=== PATIENT | male | born 1940 | race Caucasian/White ===

== ENCOUNTER 2017-01-28 17:53 | Emergency (ER) | payer MEDICARE, MEDICAID ==
[~2017-01-28] VITALS: Ht 177.8 cm; Wt 77.9 kg
[~2017-01-28 17:53] MED LIST: ACET-2161 PO; ACET-62 PO; CETI-115 PO; CLON1TAB PO; CLOP75TA19 PO; DESM0.1T2 PO; ESCI20TA22 PO; FLUT9.9S NAS; FURO-153 PO; GABA-192 PO; IPRA3AMP AEROSOL; LEVO100T12 PO; LEVO88TA7 PO; LITH450T2 PO; NAPR220C11 PO; POTA20TA87 PO; PROP40TA7 PO; SIMV10TA2 PO; TAMS0.4C20 PO; TOPI50TA PO; TRAZ-173 PO; [UNRECOGNIZED DRUG - CODE] PO
[2017-01-28 17:54] VITALS: Ht 177.8 cm; Wt 77.9 kg
--- OUTSIDE RECORDS SUMMARY | 2017-01-28 17:56 | XMS REPORT | Continuity of Care Document ---
Author Author Dwain Blanca DPM [facility] Address [address] [place] [address] Phone Payers Payer name Insurance type Covered alliance party ID Authorization(s) Unknown Problems Condition Effective Dates (start - stop) Clinical Status HYPERTENSION NOS - Family History Family Member Diagnosis Age At Onset Status Unknown Social History Social History Element Description Quantity Unknown Allergies, Adverse Reactions, Alerts Substance Reaction Severity Status Unknown Medications Medication Instructions Dosage Effective Dates (start - stop) Status Unknown Immunizations Vaccine Date Status Comments Unknown Results Test Name Date and Time Measure Units Reference Range Abnormal Flag Comments Unknown Vital Signs Date / Time: Height Weight Pulse Rate Blood Pressure Temperature Unknown Procedures Procedure Date Unknown Encounters Encounter Location Date Patient Visit C New Pod Patient Visit Conversion Advance Directives Directive Effective Date Unknown
--- OUTSIDE RECORDS SUMMARY | 2017-01-28 17:56 | XMS REPORT ---
Author Author [place] Unknown Address Unknown Phone Unavailable Allergies, Adverse Reactions, Alerts * No Latex Allergy. * No IV Contrast Allergy. * No Known Drug Allergies. * No Known Food Allergies. * No Known Allergies. Problems * Cerebrovascular Accident* Status:Active. * Fall Risk* Status:Active. Procedures No Procedures Documented. Medication It is the responsibility of the patient or patient independent sales representative to confirm the list of medications with either the patient's personal care provider or the patient's follow-up care provider to ensure the patient has an appropriate list of medications to take at home. Discharge medications* benztropine 0.5 mg Tablet, Ordered By: Jose Dobbs Directions: 1 tablet oral twice a day * cetirizine (ZyrTEC) 10 mg Tablet, Ordered By: Jose Dobbs Directions: 1 tablet oral daily at bedtime * clopidogrel (Plavix) 75 mg Tablet, Ordered By: Jose Dobbs Directions: 1 tablet oral daily * escitalopram (LexAPRO) 20 mg Tablet, Ordered By: Jose Dobbs Directions: 1 tablet oral daily * gabapentin (NEUROntin) 600 mg Tablet, Ordered By: Jose Dobbs Directions: 1 tablet oral twice a day * levothyroxine 200 mcg Tablet, Ordered By: Jose Dobbs Directions: 1 tablet oral daily * QUEtiapine (SEROquel) 300 mg Tablet, Ordered By: Jose Dobbs Directions: 1 tablet oral twice a day * tamsuLOSIN (FLOmax) 0.4 mg Capsule, Ext Release 24 hr, Ordered By: Jose Dobbs Directions: 1 capsule oral daily at bedtime * clonazePAM (KlonoPIN) 1 mg Tablet, Ordered By: Jose Dobbs Directions: 1 tablet oral daily at bedtime * mirtazapine (Remeron) 45 mg Tablet, Ordered By: Jose Dobbs Directions: 1 tablet oral daily at bedtime * traZODone 100 mg Tablet, Ordered By: Jose Dobbs Directions: 2 tablet oral daily at bedtime * lithium carbonate 450 mg Tablet Extended Release, Ordered By: Jose Dobbs Directions: 1 tablet oral daily at bedtime * propranolol 40 mg Tablet, Ordered By: Jose Dobbs Directions: 1 tablet oral daily at bedtime * simvastatin (Zocor) 20 mg Tablet, Ordered By: Jose Dobbs Directions: 1 tablet oral daily at bedtime * temazepam 30 mg Capsule, Ordered By: Jose Dobbs Directions: 1 capsule oral daily at bedtime * topiramate (ToPAMax) 50 mg Tablet, Ordered By: Jose Dobbs Directions: 1 tablet oral twice a day Additional Instructions: To start when 25 mg dose is finished * lactulose 10 gram/15 mL Solution, Ordered By: Jose Dobbs Directions: 30 mL oral daily PRN constipation * acetaminophen 325 mg Tablet, Ordered By: Jose Dobbs Directions: 1 tablet oral every four hours PRN pain * magnesium hydroxide (Milk of Magnesia) 400 mg/5 mL Suspension, Ordered By: Jose Dobbs Directions: 30 mL oral daily PRN constipation * benzonatate (Tessalon) 200 mg Capsule, Ordered By: Jose Dobbs Directions: 1 capsule oral four times daily PRN cough * activity as tolerated with assistance and walker until cleared by PT * diet: low salt, low cholesterol * aspirin 81 mg Tablet, Chewable, Ordered By: Jose Dobbs Directions: 1 tablet oral Daily at 8 AM _ Stopped medications* Stopped Medication: Keppra 250 mg tablet 1 tablet oral daily for 7 days; Finished Therapy: 01/16/13 AM Results LAB--CHEMISTRY from 01/18/2013 6:56 AMAnion Gap 5 (3-20 ) Albumin 3.3 g/dL L (3.5-4.8 g/dL) BUN 18 mg/dL (4-20 mg/dL) Calcium 8.6 mg/dL (8.6-10.0 mg/dL) Chloride 111 mEq/L H (99-109 mEq/L) CO2 25 mEq/L (22-32 mEq/L) Creatinine 1.44 mg/dL H (0.64-1.27 mg/dL) eGFR 48 A (>60- ) Glucose 115 mg/dL H (70-100 mg/dL) Potassium 3.9 mEq/L (3.6-5.1 mEq/L) Sodium 141 mEq/L (136-144 mEq/L) Phosphorus 3.9 mg/dL (2.4-4.7 mg/dL) LAB--CHEMISTRY from 01/19/2013 6:41 AMAnion Gap 8 (3-20 ) BUN 19 mg/dL (4-20 mg/dL) Calcium 8.6 mg/dL (8.6-10.0 mg/dL) Chloride 107 mEq/L (99-109 mEq/L) CO2 23 mEq/L (22-32 mEq/L) Creatinine 1.48 mg/dL H (0.64-1.27 mg/dL) eGFR 46 A (>60- ) Glucose 109 mg/dL H (70-100 mg/dL) Potassium 3.9 mEq/L (3.6-5.1 mEq/L) Sodium 138 mEq/L (136-144 mEq/L) LAB--HEMATOLOGY from 01/18/2013 6:56 AMHCT 39.2 % L (42.0-52.0 %) HGB 12.8 g/dl L (14.0-18.0 g/dl) MCH 32.0 pg (27.0-32.0 pg) MCHC 32.7 g/dL (32.0-36.0 g/dL) MCV 98.0 fL (82.0-99.0 fL) MPV 10.4 fL (9.4-12.3 fL) Platelet Count 175 K/uL (150-400 K/uL) RBC 4.00 M/uL L (4.60-6.20 M/uL) RDW 12.9 % (11.5-14.5 %) WBC 7.1 K/uL (4.8-10.8 K/uL)
--- NOTE | 2017-01-28 18:02 | NUR ---
CT PATIENT TO CT PER CART, STABLE.
--- NOTE | 2017-01-28 18:05 | ERPDOC ---
Departure Disposition Decision Date: January 28, 2017 Disposition Decision Time: 18:18 Disposition: 01 DISCHARGED HOME, SELF-CARE Impression Impression Impression: Primary Impression: Fall on same level Encounter type: initial encounter Qualified Codes: W18.30XA - Fall on same level, unspecified, initial encounter Additional Impression: Scalp laceration Encounter type: initial encounter Qualified Codes: S01.01XA - Laceration without foreign body of scalp, initial encounter Severity: Moderate Condition: Stable Seen By: Physician only Referrals: JESSE CHAUDHARY MD (Family) Follow-up in 10 days Patient Instructions: [facility] (ED) Problems/Meds/Labs Reviewed?: Yes Medications reviewed and manag: Yes Additional Instructions: Starting tomorrow he may shower normally, sutures removal in 10 days Follow up care ordered?: Yes Mental Status: Alert, Oriented HPI - Fall/Injury General Chief Complaint: Fall Stated Complaint: FALL Time Seen by Provider: 17:58 Source: patient Exam Limitations: no limitations HPI - Fall/Injury Initial Comments Patient is a 76-year-old man presents emergency department via EMS secondary to fall. Patient states she tripped in his home at independent living, landing backwards and getting a laceration on his scalp, patient did not lose consciousness has no systemic signs or symptoms. EMS was called patient was brought to the ER for evaluation. Patient is currently on Plavix. Occurred At: home Onset: Rapid Duration: 1/2 hour Injuries/Pain Location: head Context: tripped Loss of Consciousness: no loss of consciousness Allergies: Coded Allergies: buspirone (Verified Allergy, Unknown, 01/28/17) chlorpromazine (Verified Allergy, Unknown, 01/28/17) Past History Patient Surgical History 02-08-2009 Left ankle fusion, Dr. Loyd 1996 colon resection. Left inguinal hernia repair, Dr. Kathya Henry Past Medical History Metabolic: cancer, hypercholesterolemia, hypertension, hypothyroidism Cardiac: CAD, other Respiratory: COPD GI: other Male: BPH, renal insufficiency Neurological: TIA Musculoskeletal: osteoarthritis Psychological: bipolar, depression, other, schizophrenia Surgical History General: hernia, other Family History Family PMH: FOUND: [place], cancer, diabetes, hypercholesterolemia, hypertension, hypothyroidsim Vaccines Hx Influenza Vaccination: Yes (JUNE 2015) Hx Pneumococcal Vaccination: Yes Social History Smoking Status: Never smoker Does patient use chewing tobac: No Substance Use Type: does not use Alcohol Intake: none Review of Systems Constitutional Constitutional: DENIES: appetite decrease, chills, dizziness, fever, weakness Eyes Vision: DENIES: double vision, loss of visual warren ENMT Sinuses: DENIES: congestion, rhinorrhea Mouth/Throat: DENIES: scratchy throat, sore throat Cardiovascular Cardiac: DENIES: chest pain Pulmonary Respiratory: DENIES: cough GI Upper Abdomen: DENIES: pain Lower Abdomen: DENIES: pain Musculoskeletal General: DENIES: cramps, pain, weakness Integumentary Skin: see HPI Neurological General: DENIES: change in strength, headache, numbness, weakness Endocrine Endocrine: DENIES: heat/cold intolerance Hematologic/Lymphatic Hematologic/Lymphatic: DENIES: anemia Physical Exam General General Nourishment: well nourished, appears stated age General Body Habitus: well groomed Vitals and Pain First Documented Vital Signs Date Time Temp Pulse Resp B/P Pulse Ox O2 Delivery O2 Flow Rate FiO2 01/28/ 17:54 98.1 67 17 126/67 94 Room Air Weight: Kilograms: 77.900 Height (feet): 5 Height (inches): 10.00 Triage Pain Scale: Eyes (brief) Eyes Brief: found: EOMI, PERRL, other (patient has a 3 similar laceration to the left parietal scalp no active bleeding) Neck (brief) Neck: NOT FOUND: adenopathy, spasm, tenderness, tracheal deviation Respiratory (brief) Respiratory: FOUND: clear all warren, equal bilaterally, NOT FOUND: rales, wheezes Cardiovascular (brief) Cardiac: FOUND: regular rate, regular rhythm Capillary Refill: <2 sec Abdomen (brief) Abdominal Brief: FOUND: bowel normo active x4, soft, NOT FOUND: distended, tender Lymphatic (brief) Lymphatic Brief: NOT FOUND: adenopathy Musculoskeletal (brief) Musculoskeletal Brief: NOT FOUND: spasm, tenderness Integumentary (brief) Integumentary Brief: FOUND: dry, pink, warm, NOT FOUND: rash Neurologic Mental Status: FOUND: alert, oriented GCS Adult : GCS Eye Opening: (4)Spontaneous GCS Verbal: (5)Oriented GCS Motor: (6)Obeys Commands GCS Total: 15 Cranial Nerves: FOUND: other (cranial nerves II through XII intact) Motor : Motor Side: bilateral Motor Location: biceps, triceps, wrist, finger extensors, finger flexors, quadriceps, hamstring, foot extension, foot flexion, manager diesel strength Motor Degree: 5 Sensation: FOUND: soft touch intact x4 ext DTR's : DTR Side: bilateral DTR Location: Biceps, Patellar Psychiatric (brief) Psychiatric Brief: FOUND: alert, oriented Differential Diagnoses Considering: Abrasion, Concussion, Contusion, Epidural Hematoma, Subdural Hematoma, Other (laceration) Progress Results/Orders Orders Procedure Category Date Status Time Ct Head W/O Contrast CT 01/28/17 Logged 17:[address] scan negative, 2 larry placed for 370 laceration to the parietal scalp on the left. Patient is discharged home and shower normally tomorrow, continue precautions, larry out in 10 days at primary medical physician's office CT CT : CT: Head no contrast Interpretation: Normal, Faxed Report (no intracranial hemorrhage) CYRIL IBARRA MD January 28, 2017 18:05
[2017-01-28] MEDS ORDERED: MIRT45TA4 PO (18:10)
[2017-01-28] MEDS ORDERED: ESCI10TA47 PO (18:17)
[2017-01-28] MEDS ORDERED: SENN-152 PO (18:17)
[2017-01-28] MEDS ORDERED: FERR325C PO (18:17)
[2017-01-28] MEDS ORDERED: PSYL660P17 PO (18:17)
--- OUTSIDE RECORDS SUMMARY | 2017-01-28 18:17 | XMS REPORT ---
Author Author [place], [facility] [place] Unknown Address Unknown Phone Unavailable Allergies, Adverse Reactions, Alerts * No Latex Allergy. * No IV Contrast Allergy. * No Known Drug Allergies. * No Known Food Allergies. * No Known Allergies. Problems * Cerebrovascular Accident* Status:Active. * Fall Risk* Status:Active. Procedures No Procedures Documented. Medication It is the responsibility of the patient or patient escrow representative to confirm the list of medications [...]
[2017-01-28] MEDS ORDERED: GUAI237L83 PO (18:21)
[2017-01-28] MEDS ORDERED: ONDA-55 PO (18:21)
[2017-01-28] MEDS ORDERED: BISM262O28 PO (18:21)
[2017-01-28] MEDS ORDERED: MAGN400O4 PO (18:22)
[2017-01-28] MEDS ORDERED: POLY119P3 PO (18:22)
[2017-01-28 18:26] VITALS: BP 126/67; PULSE 67; RESP 17; TEMP 98.1; O2SAT 94
--- NOTE | 2017-01-29 11:54 | DI ---
Indication: ITS.REASON: Fall, Head injury PROCEDURE: CT HEAD W/O CONTRAST: Encounter: Initial Comparison: August 03, 2012 Technique: Axial CT images through the head were performed without contrast. Iterative Reconstruction dose reducing technique was utilized. FINDINGS: Mild generalized atrophy. The ventricles are of normal size, shape, and configuration for the patient's age. Old left thalamic lacunar infarct. There is no evidence of acute intracranial hemorrhage, midline displacement, or mass effect. There are scattered areas of low attenuation in the white matter which most likely represent changes of chronic microvascular ischemia. The CT attenuation of the brain parenchyma is otherwise normal within the cerebellum, brain stem, and cerebral hemispheres. The tympanic cavities and mastoid air cells are free of appreciable disease. There are no definite fractures of the skull base, calvarium, or visualized portion of the midface. IMPRESSION: No CT evidence of acute traumatic intracranial injury. There is a preliminary report by virtual radiologic. .
== END 2017-01-28 18:26 | disposition home or self-care (01) ==
LOC: ED 17:53
DX: S01.01XA Laceration without foreign body of scalp, initial encounter (principal); W01.0XXA Fall on same level from slipping, tripping and stumbling without subsequent striking against object, initial encounter; Y93.9 Activity, unspecified; Y92.099 Unspecified place in other non-institutional residence as the place of occurrence of the external cause; Y99.8 Other external cause status